=== PATIENT | female | born 1965 | race Caucasian/White ===

== ENCOUNTER 2019-03-27 22:19 | Emergency (ER) | payer BC ==
[~2019-03-27] VITALS: Ht 152.4 cm; Wt 72.6 kg
[2019-03-27] MEDS ORDERED: EMGALITY P120 MG/1 M (22:46)
[2019-03-27] MEDS ORDERED: TROKENDI XR100 MG (22:46)
[2019-03-27] MEDS ORDERED: VALACYCLOVIR500 MG (22:46)
[2019-03-27] MEDS ORDERED: IMITREX100 MG (22:46)
[2019-03-27] MEDS ORDERED: CLONAZEPAM0.5 M1 (22:47)
[2019-03-27] MEDS ORDERED: CAMBIA50 MG (22:47)
[2019-03-27] MEDS ORDERED: DOXEPIN HCL (22:47)
[2019-03-27] MEDS ORDERED: CYMBALTA60 MG (22:48)
[2019-03-27] MEDS ORDERED: CORDRAN (22:48)
[2019-03-27] MEDS ORDERED: FLUOCINONIDE15 GM (22:48)
[2019-03-27] MEDS ORDERED: PHENERGAN25 MG (22:49)
[2019-03-27] MEDS ORDERED: TIZANIDINE HCL4 M1 (22:49)
[2019-03-28] MEDS ORDERED: IMITREX SUBCUTANEO (04:03)
[2019-03-28] MEDS ORDERED: IMITREX100 MG PO (04:03)
== END 2019-03-28 04:13 | disposition home or self-care (01) ==
LOC: ER 22:19
DX: G43.109 Migraine with aura, not intractable, without status migrainosus (principal)